=== PATIENT | male | born 1970 | race African-American/Black ===

== ENCOUNTER 2022-02-27 07:27 | Emergency (ER) | payer OTHER ==
[~2022-02-27] VITALS: Ht 182.9 cm; Wt 83.5 kg
[2022-02-27] MEDS ORDERED: KETOROLAC TROMETHAMINE 30 MG/ML VIAL IM STA (07:41)
[2022-02-27 09:17] LABS: CLARITY,URINE CLEAR (CLEAR); COLOR,URINE YELLOW (YELLOW); KETONES,URINE NEGATIVE (NEGATIVE); LEUKOCYTE ESTERASE ,URINE SMALL (NEGATIVE); NITRITE,URINE NEGATIVE (NEGATIVE); PROTEIN,URINE DIPSTICK TRACE (NEGATIVE); URINE UROBILINOGEN 0.2 mg/dL (0.2 - 1)
[2022-02-27 09:32] LABS: BACTERIA,URINE MANY /HPF; EPITHELIAL CELLS,URINE FEW /LPF; RBC,URINE 0-5 /HPF (0-5); WBC,URINE (MAN) 21-50 /HPF (0-5)
[2022-02-27] MEDS ORDERED: CEFDINIR300 MG PO (10:14)
[2022-02-27] MEDS ORDERED: NAPROXEN250 MG PO (10:32)
== END 2022-02-27 10:38 | disposition home or self-care (01) ==
LOC: ER 07:48
DX: N43.3 Hydrocele, unspecified (principal); N39.0 Urinary tract infection, site not specified; I10 Essential (primary) hypertension
CPT/HCPCS: 76870; 81001; 93976; 99283; J1885

== ENCOUNTER 2024-02-05 12:21 | Emergency (ER) | payer OTHER ==
[~2024-02-05] VITALS: Ht 182.9 cm; Wt 83.2 kg
[~2024-02-05 12:21] MED LIST: CEFDINIR300 MG PO; NAPROXEN250 MG PO
[2024-02-05] MEDS: ONDANSETRON HCL INJ 2MG/ML 2ML 2 MG/ML VIAL IV ONE (13:04)
[2024-02-05] MEDS: KETOROLAC TROMETHAMINE 30 MG/ML VIAL IV STA (13:04)
[2024-02-05 14:34] VITALS: PULSE 71; RESP 16; TEMP 98.6; O2SAT 100
[2024-02-05] MEDS ORDERED: LEVOFLOXACIN500 MG PO (14:54)
[2024-02-05] MEDS ORDERED: TYLENOL325 MG PO (14:54)
[2024-02-05] MEDS ORDERED: KETOROLAC TROME10 MG PO (14:54)
== END 2024-02-05 15:21 | disposition home or self-care (01) ==
LOC: FSED 12:23
DX: N45.2 Orchitis (principal); N43.3 Hydrocele, unspecified; I16.0 Hypertensive urgency; I10 Essential (primary) hypertension; Z87.442 Personal history of urinary calculi; F17.290 Nicotine dependence, other tobacco product, uncomplicated
CPT/HCPCS: 76870; 80053; 81003; 85025; 96374; 96375; 99284; J0696; J1885; J2405